=== PATIENT | female | born 1955 | race Caucasian/White ===

== ENCOUNTER → 2020-08-06 | Outpatient (CLI) | payer MEDICARE, OTHER ==
[~2020-08-06] MED LIST: LEVO88TA70 PO; SERT25TA PO; SIMV10TA PO
--- NOTE | 2020-08-06 14:57 | KCIC ---
EXAMINATION: MRI RIGHT WRIST WITHOUT IV CONTRAST CLINICAL HISTORY: Recurrent right wrist ganglion cyst. Vit E indicates scar (2 prior surgery) and new lump. TECHNIQUE: Multiplanar multisequential images obtained through the wrist without intravenous contrast . COMPARISON: None FINDINGS: TRIANGULAR FIBROCARTILAGE: Degenerative changes. SCAPHOLUNATE LIGAMENT: Intact. LUNOTRIQUETRAL LIGAMENT: Intact. FLEXOR TENDONS/CARPAL TUNNEL: Within normal limits. EXTENSOR TENDONS: Moderate fluid surrounding the extensor carpi radialis brevis brevis and longus ten dons and mild fluid surrounding the extensor pollicis longus tendon at the crossover point of the thi rd and second extensor compartments. Tendinosis and mild to moderate fluid surrounding the extensor d igitorum tendons just distal to this level. Of note, skin marker is placed between the second and fou rth extensor compartments in this region. BONES/MARROW: No evidence of acute fracture or suspicious marrow replacing process. Moderate to sever e degenerative changes first CMC joint. Scattered small cystic changes in the carpals, nonspecific. JOINT FLUID: No significant joint effusion. No evidence of recurrent ganglion at the region of intere st along the dorsal wrist. IMPRESSION: Tenosynovitis in the second-fourth extensor compartments as described, corresponding to marked region of interest. No evidence of recurrent ganglion. Moderate to severe degenerative changes first CMC joint. Electronically signed by: Sabino Merrill DO (08/06/2020 2:55 PM) [id number]
== END ==
LOC: KCIC MRI 09:07
PROVIDERS: ATTEND Orthopaedic Surgery Hand Surgery
DX: M19.041 Primary osteoarthritis, right hand (principal); M65.841 Other synovitis and tenosynovitis, right hand
CPT/HCPCS: 73221

== ENCOUNTER → 2021-09-26 | Outpatient (CLI) | payer MEDICARE, OTHER ==
[~2021-09-26] MED LIST changes: +FAMO40TA57 PO; +METF10007 PO; +PHEN37.53 PO; +TRAM50TA PO
--- NOTE | 2021-09-26 11:46 | KCIC ---
EXAMINATION: MRI LEFT LOWER EXTREMITY JOINT WITHOUT INDICATIONS: Left knee pain. Generalized overall left knee pain in recent weeks TECHNIQUE: Multiplanar multisequence MRI of the left knee was obtained without contrast. COMPARISON: None. FINDINGS: MENISCI: There is a horizontal tear of the posterior horn medial meniscus extending into the body. T he lateral meniscus is intact. LIGAMENTS: The anterior and posterior cruciate ligaments are intact. The medial collateral ligament and lateral collateral ligament complex are intact. EXTENSOR MECHANISM: The quadriceps and patellar tendons are intact. Fat pads are normal. Retinacula are intact. BONES AND CARTILAGE: There is predominantly superficial cartilage loss along the patella. Small subc hondral cysts. Trochlear cartilage is intact. There is deep partial thickness cartilage loss througho ut the weightbearing lateral femoral condyle and partial thickness cartilage loss along the lateral t ibial plateau. There is superficial partial-thickness cartilage loss in the lateral compartment. No a cute fracture. Mild marrow edema deep to the posterior horn medial meniscus tear OTHER: Small joint effusion. Tiny leaking Tyler cyst. Muscles and remaining tendons are intact. IMPRESSION: 1. Horizontal tear of the posterior horn and body medial meniscus. 2. Tricompartmental cartilage loss, greatest in medial compartment where there is deep partial-thickn ess cartilage loss. 3. Small joint effusion. Electronically signed by: Nell Edgar MD (09/26/2021 11:43 AM) [id number]
== END ==
LOC: KCIC MRI 08:15
PROVIDERS: ATTEND Orthopaedic Surgery
DX: S83.282A Other tear of lateral meniscus, current injury, left knee, initial encounter (principal); M25.462 Effusion, left knee; M85.662 Other cyst of bone, left lower leg; M25.862 Other specified joint disorders, left knee; X58.XXXA Exposure to other specified factors, initial encounter; Y93.89 Activity, other specified; Y92.89 Other specified places as the place of occurrence of the external cause; Y99.8 Other external cause status
CPT/HCPCS: 73721

== ENCOUNTER 2021-09-30 07:41 | Day surgery (SDC) | payer MEDICARE, OTHER ==
[~2021-09-30] VITALS: Ht 177.8 cm; Wt 73.6 kg
[~2021-09-30 07:41] MED LIST changes: +CLINDAMYCIN 900MG PREMIX 50 ML IV PRN; -FAMO40TA57 PO; +HYDROmorphone 2 MG/ML INJ. IVP PRN; +IV RINGERS,LACTATED 1000ML 1,000 ML IV SCH; -METF10007 PO; +MORPHINE SULFATE 2 MG/ML INJ. IVP PRN; -PHEN37.53 PO; +PROCHLORPERAZINE 10 MG/2 ML VIAL. IVP PRN; -TRAM50TA PO; +fentaNYL PF VIAL 100 MCG/2 ML VIAL IVP PRN
--- NOTE | 2021-09-30 08:11 | DISCH ---
DISCHARGE INSTRUCTIONS Condition on Discharge Condition on Discharge: Stable Activity After Discharge Activity Instructions for Disc: Resume previous activity, Activity as bhavana ated, Avoid exertion Driving Instructions after Dis: Do not drive today Weight Bearing Status after Di: Full weight bearing Wound Incision Care Wound/Incision Care: Ice to area for comfort, Keep wound elevated, Change dressing Other wound/incision instructi: May change dressing postoperative day #3 Follow-Up Follow up with: 10 to 14 days LISSET BUTCHER Jr. DO Sep 30, 2021 08:11
[2021-09-30] MEDS ORDERED: ONDANSETRON PF 4 MG/2 ML VIAL. ONE (08:13)
[2021-09-30] MEDS ORDERED: DEXAMETHASONE SOD PHOS 4 MG/ML VIAL ONE (08:13)
[2021-09-30] MEDS ORDERED: PROPOFOL 10 MG/ML (20ML) VIAL. IV ONE (08:13)
[2021-09-30] MEDS ORDERED: LIDOCAINE 1% PF 5 ML VIAL. ONE (08:13)
[2021-09-30] MEDS ORDERED: PHENYLEPHRINE in 0.9% NACL PF 1 MG/10 ML SYRINGE. IV ONE ×2 (08:21→09:07)
[2021-09-30 08:27] VITALS: BP 123/69
[2021-09-30] MEDS ORDERED: FAMO40TA57 PO (08:33)
[2021-09-30] MEDS ORDERED: METF10007 PO (08:33)
[2021-09-30] MEDS ORDERED: PHEN37.53 PO (08:33)
[2021-09-30] MEDS ORDERED: BUPIVACAINE-EPI 0.25%-1:200000 MPF 30 ML VIAL. ONE (08:41)
[2021-09-30] MEDS ORDERED: fentaNYL PF VIAL 100 MCG/2 ML VIAL ONE (08:58)
--- NOTE | 2021-09-30 09:24 | PDOC4 ---
OPERATIVE NOTE Date: Date: Sep 30, 2021 Pre-Op Diagnosis: 1. 66-year-old female osteoarthritis left knee 2. Degenerative meniscus tear left knee Post-Op Diagnosis: Same Procedure Performed: 1. Diagnostic arthroscopy left knee 2. Partial medial meniscectomy with debridement left knee Surgeon: Vaishali Anesthesia Type: General Blood Loss: 20 cc Specimans Obtained: None Complications: Patient tolerated procedure well without any apparent complications. Operative Note: See dictation RAMON LOYOLA Sep 30, 2021 09:24
[2021-09-30] MEDS ORDERED: TRAM50TA PO (09:27)
[2021-09-30 10:14] VITALS: BP 126/66
[2021-09-30] MEDS ORDERED: traMADol 50 MG TABLET PO ONE (10:15)
--- NOTE | 2021-09-30 10:55 | OP ---
DATE OF SURGERY: 09/30/2021 PREOPERATIVE DIAGNOSIS: Medial meniscal tear with degenerative joint disease, left knee. POSTOPERATIVE DIAGNOSIS: Medial meniscal tear with degenerative joint disease, left knee. PROCEDURE: Left knee arthroscopy with partial medial meniscectomy and joint debridement. SURGEON: Lucio Tom Jr, DO COUNTER SUPERVISOR: Tuan Cook. ANESTHESIA: General. COMPLICATIONS: None. ESTIMATED BLOOD LOSS: 20 mL. DESCRIPTION OF PROCEDURE: The patient was taken to the operative suite, given general anesthetic. Left lower extremity was placed in a knee harrington, prepped and draped in a sterile fashion. Inferomedial and inferolateral portals were established. Knee was insufflated with saline. Visualization of the patellofemoral joint noted there to be some grade 2 and grade 3 changes, which were unstable; therefore, debridement was undertaken to the undersurface of the patella. This was mainly the medial facet and the middle facet at this point. Sulcus had a small area of grade 3 changes, which were unstable. This was briefly debrided. There was no full-thickness chondral damage to the patella or femoral sides of the joint. Scope was then taken into the medial compartment. There were no loose bodies within the medial gutter. There was noted to be a tear of the medial meniscus. Using basket forceps and a shaver, a partial medial meniscectomy was undertaken. This was debrided back to stable tissue. Remnant was probed and noted to be very stable at this point. The tibial side of the joint had grade 2 changes. No significant abnormalities; however, the femoral side had grade 3 changes throughout the entire femoral condyle from 0 up to 90 degrees of flexion. No other abnormalities were noted. Therefore, scope was then taken into the intercondylar region, the ACL was visualized and noted to be intact and the ACL and the PCL were stable with probing. Lateral meniscus was noted to be intact with only minimal changes at this point. No need for significant debridement. The femoral side of the joint was completely intact on the articular surface. Tibial side was the same with some small fissuring, but no abnormalities that were unstable. Therefore, this was thoroughly irrigated. No loose bodies within the lateral gutter. This was irrigated and suctioned dry. All instruments were removed. Local was placed in the portal sites. Portal sites were reapproximated in an interrupted fashion using nylon. Sterile dressing was applied. The patient was then taken from the operative bed to the postoperative bed, taken to the PACU in stable condition. NELSON/REBECCA/SHEILA DR: Qamar TID: [id number]
== END 2021-09-30 10:39 | disposition home or self-care (01) ==
LOC: SURG 07:41
PROVIDERS: ATTEND Orthopaedic Surgery
DX: S83.242A Other tear of medial meniscus, current injury, left knee, initial encounter (principal); M17.12 Unilateral primary osteoarthritis, left knee; I10 Essential (primary) hypertension; E78.00 Pure hypercholesterolemia, unspecified; E66.9 Obesity, unspecified; K21.9 Gastro-esophageal reflux disease without esophagitis; F41.9 Anxiety disorder, unspecified; Z90.710 Acquired absence of both cervix and uterus; Z98.890 Other specified postprocedural states; Z79.899 Other long term (current) drug therapy; Z72.89 Other problems related to lifestyle; Z88.1 Allergy status to other antibiotic agents; Z88.8 Allergy status to other drugs, medicaments and biological substances; X58.XXXA Exposure to other specified factors, initial encounter; Y93.89 Activity, other specified; Y92.89 Other specified places as the place of occurrence of the external cause; Y99.8 Other external cause status
CPT/HCPCS: 29881; J1100; J2370; J2405; J2704; J3010; J3490; A4930